=== PATIENT | male | born 1975 | race Caucasian/White ===

== ENCOUNTER 2023-11-05 16:27 | Emergency (ER) | payer BC ==
[2023-11-05] MEDS: Naproxen 250 MG Tab PO ONE (18:26)
== END 2023-11-05 18:30 | disposition home or self-care (01) ==
LOC: DL.ED 16:27
DX: S06.0X1A Concussion with loss of consciousness of 30 minutes or less, initial encounter (principal); S16.1XXA Strain of muscle, fascia and tendon at neck level, initial encounter; W01.198A Fall on same level from slipping, tripping and stumbling with subsequent striking against other object, initial encounter
CPT/HCPCS: 70450; 72125; 99284; A9270